=== PATIENT | female | born 1985 | race Caucasian/White ===

== ENCOUNTER 2019-11-19 16:21 | Emergency (ER) | payer SELFPAY ==
[2019-11-19 16:22] VITALS: BP 144/94; PULSE 71; RESP 16; TEMP 36.3; O2SAT 97; BMI 24.1
--- NOTE | 2019-11-19 16:36 | ED.DCSUM_ITS ---
- ER Visit Summary Date of Service: 11/19/19 Chief Complaint: [Dental pain and sore throat] History of Present Illness: The patient is a 33 F resents to the emergency department with complaint of pain in her left lower teeth and jaw that started yesterday. Patient states that the tooth pain seemed to improve but now having pain into her throat and she felt like her glands were swelling. She denies any fevers. She denies any cough or sick contacts. Patient has no medical history. [] Physical Examination: [HEENT-PERRLA, EOMI. Cranial nerves II through XII grossly intact. TMs clear. Mucous membranes moist. No adenopathy. Pharynx-no significant erythema. No exudates noted. No trismus on exam. Dentition- patient has poor dentition with multiple dental caries noted. She does have tenderness to the left lower molars diffusely and inner gingiva. No obvious discrete dental abscess noted. There is no facial erythema or cellulitis. Cardiovascular-regular rate and rhythm without murmur or ectopy Lungs-clear to auscultation, chest wall stable without crepitus or subcu emphysema Abdomen-normoactive bowel sounds, soft, nontender, no rebound or rigidity, no peritoneal signs. Extremities-intact ?4, normal range of motion, normal pulses, atraumatic] Test Results: [None indicated] Emergency Department Course and Treatment: Patient given clindamycin 300 mg p.o. [] Treatment Plan: [Patient will be treated with clindamycin and given a few [place] for severe pain. Patient will be given a list of dentists in the area and advised to follow-up with a dentist.] Disposition: [Discharged home in stable condition] Impression: [Dental pain-dental caries] This note was generated with [employer] dictation software. It may contain incorrect words, spelling, and punctuation that were not noted in review of the chart prior to signing ED Disposition - Plan for ED Patient: Referrals: Care Physician,No Primary [Primary Care Provider] -
--- NOTE | 2019-11-19 16:38 | ED.DEP ---
ED Disposition - Plan for ED Patient: Instructions: ED Tooth Pain Prescriptions: Clindamycin HCl [Cleocin] 300 mg PO Q6H #40 cap Prescription Printed Hydrocodone Bitart/Apap 5-325 [[place] 5MG-325MG] 1 tab PO Q4H PRN PRN 2 Days #10 tab PRN Reason: Pain Prescription Printed Referrals: Care Physician,No Primary [Primary Care Provider] - Additional Instructions: see a dentist
[2019-11-19] MEDS: Clindamycin HCl 150 MG Capsule 300 MG PO (16:40)
== END 2019-11-19 17:11 | disposition home or self-care (01) ==
LOC: ED 16:58
PROVIDERS: Emergency Provider Emergency Medicine
DX: K08.89 Other specified disorders of teeth and supporting structures (principal); K02.9 Dental caries, unspecified; J02.9 Acute pharyngitis, unspecified; Z72.0 Tobacco use; F12.90 Cannabis use, unspecified, uncomplicated
CPT/HCPCS: 99283

== ENCOUNTER 2019-11-21 12:03 | Emergency (ER) | payer OTHER, SELFPAY ==
[2019-11-21 12:04] VITALS: BP 149/85; PULSE 86; RESP 17; TEMP 37.2; O2SAT 96; BMI 24.1
[2019-11-21 12:16] VITALS: BP 149/85; PULSE 86; RESP 17; TEMP 37.2; O2SAT 96
--- NOTE | 2019-11-21 12:24 | CT_ITS ---
STUDY: CT SOFT TISSUE NECK WITH CONTRAST REASON FOR EXAM: Female, 33 years old. INCREASED NECK SWELLING, SORE THROAT, ASTHMA RADIATION DOSAGE (If Supplied By Facility): CTDIvol = ( 11.93 ) mGy, DLP = ( 318.98 ) mGycm TECHNIQUE: The patient was scanned in a multi-detector CT scanner. High resolution transaxial imaging was performed following intravenous administration of IV 100mL Isovue-370. Sagittal and coronal images were reconstructed. Individualized dose optimization techniques were used for this CT. COMPARISON: February 15, 2010 FINDINGS: Normal bilateral parotid glands. Normal bilateral paperhanger pipe spaces. Normal bilateral parapharyngeal spaces. Normal bilateral carotid spaces. Normal bilateral sublingual and submandibular glands and spaces. Normal visualized nasopharynx. Normal retropharyngeal space. Normal perivertebral space. Normal visualized bilateral faucial tonsils. The visualized tongue, tongue base and oropharynx are normal. The visualized cervical lymph nodes (levels I-) are within normal size limits, and maintain normal morphology. There is no demonstrated solid or cystic mass lesion. There is no abnormal contrast enhancement. Normal epiglottis, bilateral vallecula and hypopharynx. The pre-epiglottic and paraglottic adipose spaces are normal. Normal visualized bilateral piriform sinuses, aryepiglottic folds, vocal cords, and arytenoid-cricoid articulations. Normal subglottic trachea. Normal bilateral lobes of the thyroid gland. Normal visualized pulmonary apices. Normal visualized paranasal sinuses. Normal visualized cervical spine. CT/Soft Tissue Neck WITH Contrast IMPRESSION: Within normal limits enhanced CT examination of the soft tissues of the neck. Electronically Signed: Kimmie Han MD at 14:36 EDT Tel , Service support ,
[2019-11-21] MEDS: 0.9% Normal Saline 1,000 ML 1000 ML IV (12:36)
[2019-11-21 12:51] LABS: Absolute Lymphocyte Count 3.01 X10^3/uL (0.83-4.51); Basophil# 0.04 X10^3/uL; Basophil% 0.4 % (0-1); Eosinophil# 0.12 X10^3/uL; Eosinophils% 1.1 % (0-5); Hematocrit 35.6 % (37-47); Hemoglobin 11.9 g/dL (12.0-15.0); Lymphocyte # 3.01 X10^3/ul (4.0); Lymphocyte % 26.9 % (19-41); Mean Corp Hgb Conc 33.4 g/dL (32-36); Mean Corpuscular Volume 98.6 fL (81-99); Mean Platelet Vol. 8.9 fl (6.2-12.0); Monocyte# 0.97 X10^3/uL; Monocyte% 8.7 % (0-10); NRBC Flagged by Analyzer 0 % (0-5); Neutrophil # 7.01 X10^3/uL (2.7-7.7); Neutrophil % 62.6 % (47-70); Platelet Count 241 K/mm3 (150-450); RBC Distribution Width CV 12.9 % (11.6-14.6); RBC Distribution Width SD 46.9 fl (35.1-43.9); Red Blood Count 3.61 M/mm3 (4.2-5.4); White Blood Count 11.2 K/mm3 (4.4-11.0)
[2019-11-21 13:03] LABS: Anion Gap 7 (5-15); BUN 8 mg/dL (7-18); BUN/Creat Ratio 11.2 RATIO (10-20); Calcium,Total 8.8 mg/dL (8.5-10.1); Chloride 107 mmol/L (98-107); Creatinine, Serum 0.72 mg/dL (0.55-1.02); EST Glomerular Filtration Rate 100 mL/min (>60); Est Glom Filt Rate - Afr Amer 121 mL/min (>60); Estimated Creatinine Clearance 100.94 ml/min; Glucose 94 mg/dL (74-106); Potassium 3.6 mmol/L (3.5-5.1); Sodium Level 141 mmol/L (136-145)
[2019-11-21 14:25] VITALS: BP 125/87; PULSE 68; RESP 17; TEMP 37; O2SAT 100
--- NOTE | 2019-11-21 15:13 | ED.VISSUMM ---
- ER Visit Summary Date of Service: 11/21/19 Chief Complaint: [Sore throat] History of Present Illness: The patient is a 33 F [presents to the emergency department with complaint of a sore throat that started 3 days ago. Patient started initially with dental pain. She was seen in the emergency department by myself 2 days ago and started on clindamycin and given [place] for pain. Patient states that she has been on the antibiotic for 2 days and feels like the swelling is worsened and now she has some faint erythema and some subjective fever at home. Patient also took her temperature the other day and it was 100.0. Patient states that sometimes it hurts to swallow. He otherwise has no medical history. Patient is a smoker. Drinks alcohol occasionally. Admits to occasional marijuana use.] Physical Examination: [HEENT-PERRLA, EOMI. Cranial nerves II through XII grossly intact. TMs clear. Mucous membranes moist. No adenopathy. Patient has poor dentition with multiple dental caries. She does have tenderness palpation over the inner aspect of the left lower molars. No discrete abscess palpated or fluctuance. Patient does have soft tissue swelling in the submental region on the left and submandibular region with some faint erythema to the skin. Area is tender to palpation. No trismus on exam. Cardiovascular-regular rate and rhythm without murmur or ectopy Lungs-clear to auscultation, chest wall stable without crepitus or subcu emphysema Abdomen-normoactive bowel sounds, soft, nontender, no rebound or rigidity, no peritoneal signs. Extremities-intact ?4, normal range of motion, normal pulses, atraumatic] Test Results: [CBC with differential obtained showed a slightly elevated white count of 11.2, hemoglobin 11.9, hematocrit 36, placed 241. Chemistries unremarkable. CT scan soft tissue of the neck showed nothing significant and was within normal limits.] Emergency Department Course and Treatment: [Patient was given IV clindamycin 900 mg on arrival.] Treatment Plan: [I discussed with patient admitting her for IV antibiotics which was my recommendation. Patient states that she has a son at home that she has nobody else to care for and cannot be admitted at this time. She would prefer to continue with oral antibiotics at home and if symptoms worsen she will return to the emergency department.] Disposition: [Discharged home in stable condition. Patient will be referred to Dr. Lemus for follow-up. Patient advised to return if worsening pain, fever, increased swelling, or condition should worsen anyway.] Impression: [Dental abscess] This note was generated with [employer] dictation software. It may contain incorrect words, spelling, and punctuation that were not noted in review of the chart prior to signing ED Disposition - Plan for ED Patient: Referrals: Care Physician,No Primary [Primary Care Provider] -
--- NOTE | 2019-11-21 15:17 | ED.DEP ---
ED Disposition - Plan for ED Patient: Instructions: ED ABSCESS DENTAL Prescriptions: Hydrocodone Bitart/Apap 5-325 [[place] 5MG-325MG] 1 tab PO Q4H PRN PRN 2 Days #10 tab PRN Reason: Pain Prescription Printed Referrals: Care Physician,No Primary [Primary Care Provider] - Kennedy Lemus DDS [STAFF PHYSICIAN] - 1-2 Days if not improving
[2019-11-21 15:25] VITALS: PULSE 86; RESP 15; O2SAT 98
== END 2019-11-21 15:26 | disposition home or self-care (01) ==
LOC: ED 12:41
PROVIDERS: Emergency Provider Emergency Medicine
DX: K04.7 Periapical abscess without sinus (principal); F17.200 Nicotine dependence, unspecified, uncomplicated
CPT/HCPCS: 70491; 80048; 85025; 96365; 99284; J7030; Q9967; A4216

== ENCOUNTER 2020-07-02 09:20 | Emergency (ER) | payer SELFPAY ==
[2020-07-02 09:20] VITALS: BP 146/75; PULSE 84; RESP 16; TEMP 36.8; O2SAT 99; BMI 25.7
--- NOTE | 2020-07-02 09:54 | CT_ITS ---
STUDY: CT SOFT TISSUE NECK WITH CONTRAST REASON FOR EXAM: Female, 34 years old. ABSCESS OF LOWER JAW? SWELLING X 5 DAYS RADIATION DOSAGE (If Supplied By Facility): CTDIvol = ( 11.15 ) mGy, DLP = ( 303.51 ) mGycm TECHNIQUE: The patient was scanned in a multi-detector CT scanner. High resolution transaxial imaging was performed following intravenous administration of IV 75mL Isovue-370. Sagittal and coronal images were reconstructed. Individualized dose optimization techniques were used for this CT. COMPARISON: 11/21/2019 FINDINGS: Normal bilateral parotid glands. Normal bilateral foam rubber fabricator spaces. Normal bilateral parapharyngeal spaces. Normal bilateral carotid spaces. Normal bilateral sublingual and submandibular glands and spaces. Normal visualized nasopharynx. Normal retropharyngeal space. Normal perivertebral space. Normal visualized bilateral faucial tonsils. There is a 1.2 cm ill-defined peripherally enhancing fluid collection within the left side of the floor the mouth along the medial margin of the mandible which demonstrates some cortical destruction consistent with a dental abscess. There is mild mass effect on the structures of the floor the mouth. The visualized cervical lymph nodes (levels I-) are within normal size limits, and maintain normal morphology. There is no demonstrated solid or cystic mass lesion. There is no abnormal contrast enhancement. Normal epiglottis, bilateral vallecula and hypopharynx. The pre-epiglottic and paraglottic adipose spaces are normal. Normal visualized bilateral piriform sinuses, aryepiglottic folds, vocal cords, and arytenoid-cricoid articulations. Normal subglottic trachea. Normal bilateral lobes of the thyroid gland. Normal visualized pulmonary apices. Normal visualized paranasal sinuses. Normal visualized cervical spine. CT/Soft Tissue Neck WITH Contrast IMPRESSION: Dental abscess of the left side of the mandible measuring 1.2 cm with mass effect in the floor the mouth. Electronically Signed: Jose Ferguson MD at 11:26 EST Tel , Service support ,
--- NOTE | 2020-07-02 10:04 | ED.DCSUM_ITS ---
- ER Visit Summary Date of Service: 07/02/20 Chief Complaint: Jaw abscess History of Present Illness: The patient is a 34 F who presents with an abscess to her left lower jaw that has been getting worse over the past 5 days. Patient describes her pain as throbbing and stabbing. Patient states her pain is worse with swallowing. Patient denies any shortness of breath. Patient states the swelling is getting progressively worse. Patient denies any fevers or chills. Patient denies any discharge or drainage. Patient does admit to some nausea and vomiting. Denies any chest pain. Physical Examination: Vital signs are stable. Patient is afebrile. Patient is in no acute distress. Oral mucosa is pink and moist. Oropharynx is clear. Airway is patent. Teeth are intact. There is no gingival abscess or edema. There is tenderness and fullness in the left submandibular area. There is no erythema or warmth. There is no induration. Neck is supple. Trachea is midline. There is no JVD or lymphadenopathy noted. Heart was regular rate and rhythm. Lungs are clear and equal bilateral. Abdomen is soft and nontender. Cranial nerves II through XII are intact. There are no focal motor or sensory deficits noted. Extremities are intact. There is no calf tenderness or edema. Test Results: CBC is within normal limits. Comprehensive metabolic profile was within normal limits. CT scan of the soft tissue neck was obtained. There is a 1.2 cm abscess with mild mass-effect on the floor of the mouth on the medial aspect of the left mandible. This was interpreted by the radiologist and reviewed by myself. Emergency Department Course and Treatment: Patient was given a dose of Toradol here. Patient was given a dose of Unasyn here. Case was discussed with Dr. Lemus. He is out of town for the weekend. He recommended transferring the patient if the abscess need to be drained. Patient does not want to be transferred. Patient states she cannot afford to be admitted anywhere. Patient wants to go home with oral antibiotics. Patient will sign out AGAINST MEDICAL ADVICE. Patient was given a prescription for amoxicillin. Patient was instructed return if worse in any way. Patient understood and was agreeable with the plan. All questions were answered. Disposition: Discharge home AGAINST MEDICAL ADVICE Impression: 1. Dental abscess This note was generated with [employer] software. It may contain incorrect words, spelling, and punctuation that were not noted in review of the chart prior to signing ED Disposition - Plan for ED Patient: Disposition: Against Medical Advice Diagnosis: Dental abscess Instructions: ED Dental Abscess Prescriptions: Amoxicillin 500 mg PO TID #30 tab Transmission Status: Pending to [id number] Referrals: Becki Veliz [NON-STAFF] - 3-5 Days Kennedy Lemus DDS [STAFF PHYSICIAN] - As soon as possible
[2020-07-02 10:21] LABS: Absolute Lymphocyte Count 2.34 X10^3/uL (0.83-4.51); Absolute Neutrophil Count 7.2 X10^3/uL (2.0-7.7); Basophil# 0.04 X10^3/uL; Basophil% 0.4 % (0-1); Eosinophil# 0.14 X10^3/uL; Eosinophils% 1.3 % (0-5); Hematocrit 34.5 % (37-47); Hemoglobin 11.6 g/dL (12.0-15.0); Lymphocyte # 2.34 X10^3/ul (4.0); Lymphocyte % 21.9 % (19-41); Mean Corp Hgb Conc 33.6 g/dL (32-36); Mean Corpuscular Volume 98.3 fL (81-99); Mean Platelet Vol. 9.1 fl (6.2-12.0); Monocyte# 0.95 X10^3/uL; Monocyte% 8.9 % (0-10); NRBC Flagged by Analyzer 0 % (0-5); Neutrophil # 7.18 X10^3/uL (2.7-7.7); Neutrophil % 67.2 % (47-70); Platelet Count 267 K/mm3 (150-450); RBC Distribution Width CV 13.2 % (11.6-14.6); RBC Distribution Width SD 47.2 fl (35.1-43.9); Red Blood Count 3.51 M/mm3 (4.2-5.4); White Blood Count 10.7 K/mm3 (4.4-11.0)
[2020-07-02] MEDS: Ketorolac 30 MG/ML Syringe IV (10:24)
[2020-07-02 10:40] LABS: AST(SGOT) 13 U/L (15-37); Alanine Aminotransfer ALT/SGPT 27 U/L (13-56); Albumin, Serum 3.5 g/dL (3.2-5.0); Alkaline Phosphatase 66 U/L (45-117); Anion Gap 3 (5-15); BUN 10 mg/dL (7-18); BUN/Creat Ratio 13.9 RATIO (10-20); Calcium,Total 8.5 mg/dL (8.5-10.1); Chloride 110 mmol/L (98-107); Creatinine, Serum 0.72 mg/dL (0.55-1.02); EST Glomerular Filtration Rate 99 mL/min (>60); Est Glom Filt Rate - Afr Amer 120 mL/min (>60); Globulin 3.6 g/dL (2.2-4.2); Glucose 90 mg/dL (74-106); Protein, Total 7.1 g/dL (6.4-8.2); Sodium Level 139 mmol/L (136-145)
[2020-07-02 12:03] VITALS: BP 122/79; PULSE 64; RESP 16; O2SAT 98
== END 2020-07-02 13:29 | disposition left against medical advice (07) ==
PROVIDERS: Emergency Provider Emergency Medicine
DX: K04.7 Periapical abscess without sinus (principal); F17.210 Nicotine dependence, cigarettes, uncomplicated
CPT/HCPCS: 70491; 80053; 85025; 96365; 96375; 99283; J7030; J7050; Q9967; A4216; J0295